=== PATIENT | male | born 1945 | race Caucasian/White ===

== ENCOUNTER 2016-07-12 10:30 | Outpatient (CLI) | payer MEDICARE, OTHER | END 2016-07-12 10:31 | disposition home or self-care (01) | DX: Z85.46 Personal history of malignant neoplasm of prostate (principal) ==

== ENCOUNTER 2016-10-31 08:09 | Outpatient (CLI) | payer MEDICARE, OTHER ==
[2016-10-31 14:18] LABS: ALBUMIN/GLOBULIN RATIO 1.2 (1.0-2.2); BILIRUBIN,TOTAL 0.6 mg/dL (0.2-1.0); BUN - BLOOD UREA NITROGEN 29 mg/dL (6-20); CALCIUM 9.4 mg/dL (8.5-10.3); CARBON DIOXIDE - CO2 25 mmol/L (21-32); CHLORIDE 105 mmol/L (101-111); CHOL/HDL RATIO 3.4 (<5.0); CHOLESTEROL 167 mg/dL; GFR - MDRD 74 (>89); GLUCOSE 108 mg/dL (70-100); HDL CHOLESTEROL 49 mg/dL; POTASSIUM 4.1 mmol/L (3.5-5.0); SODIUM 138 mmol/L (135-145); TOTAL PROTEIN 7.1 g/dL (6.7-8.2); TRIGLYCERIDES 104 mg/dL; VLDL CHOLESTEROL 21 mg/dL
[2016-10-31 14:21] LABS: BASOPHILS % (AUTO) 0.2 %; EOSINOPHILS # (AUTO) 0.1 10^3/uL (0.0-0.7); EOSINOPHILS % (AUTO) 1.4 %; HCT - HEMATOCRIT 39.8 % (42.0-52.0); HGB - HEMOGLOBIN 13.4 g/dL (14.0-18.0); LYMPHOCYTES % (AUTO) 22.1 %; MEAN CORPUSCULAR HEMOGLOBIN 30.6 pg (27.0-31.0); MEAN CORPUSCULAR HGB CONC 33.6 g/dL (32.0-36.0); MEAN CORPUSCULAR VOLUME 91.1 fL (80.0-94.0); MONOCYTES # (AUTO) 0.5 10^3/uL (0.0-1.0); MONOCYTES % (AUTO) 11.2 %; NEUTROPHILS % (AUTO) 65.1 %; RED BLOOD COUNT 4.37 10^6/uL (4.70-6.10); RED CELL DISTRIBUTION WIDTH 13.4 % (12.0-15.0); UNCORRECTED WHITE BLOOD COUNT 4.6 x10^3/uL; WHITE BLOOD COUNT 4.6 x10^3/uL (4.8-10.8)
[2016-10-31 14:43] LABS: HEMOGLOBIN A1C 0.57 g/dL
== END 2016-10-31 08:10 | disposition home or self-care (01) ==
LOC: LAB.WCP 08:09
PROVIDERS: ATTEND Family Medicine
DX: I10 Essential (primary) hypertension (principal); R73.01 Impaired fasting glucose; E78.5 Hyperlipidemia, unspecified; R53.83 Other fatigue; R61 Generalized hyperhidrosis
CPT/HCPCS: 36415; 80053; 80061; 83036; 84403; 84443; 85025

== ENCOUNTER 2016-11-17 08:11 | Outpatient (CLI) | payer MEDICARE, OTHER ==
--- NOTE | 2016-11-17 13:02 | XRAY Report ---
TWO-VIEW BILATERAL KNEES: 11/17/2016 CLINICAL INDICATION: Pain. FINDINGS: Frontal and lateral views of the bilateral knees demonstrate moderate right and mild left knee osteoarthritis. There is no evidence of fracture or dislocation. No effusion is present on eit her side. IMPRESSION: MODERATE RIGHT AND MILD LEFT KNEE OSTEOARTHRITIS. JOB #: [id number] EXT JOB #:[id number]
--- NOTE | 2016-11-17 13:04 | XRAY Report ---
TWO-VIEW RIGHT LOWER LE11/17/2016 CLINICAL INDICATION: Leg pain. FINDINGS: Frontal and lateral views of the right lower leg demonstrate old, healed distal tibia and proximal fibula fractures. There is no evidence of acute fracture or dislocation. No radiopaque for eign body is seen in the soft tissues. IMPRESSION: OLD, HEALED FRACTURES. NO EVIDENCE OF ACUTE FRACTURE. JOB #: [id number] EXT JOB #:[id number]
== END 2016-11-17 08:12 | disposition home or self-care (01) ==
LOC: DI 08:11
PROVIDERS: ATTEND Family Medicine
DX: M25.561 Pain in right knee (principal); M25.562 Pain in left knee; M79.604 Pain in right leg; C61 Malignant neoplasm of prostate; M17.0 Bilateral primary osteoarthritis of knee

== ENCOUNTER 2017-08-10 08:18 | Outpatient (CLI) | payer MEDICARE, OTHER ==
[2017-08-10 12:49] LABS: BASOPHILS % (AUTO) 0.2 %; EOSINOPHILS # (AUTO) 0.1 10^3/uL (0.0-0.7); EOSINOPHILS % (AUTO) 1.2 %; HGB - HEMOGLOBIN 14.1 g/dL (14.0-18.0); LYMPHOCYTES # (AUTO) 1.1 10^3/uL (1.5-3.5); LYMPHOCYTES % (AUTO) 17.9 %; MEAN CORPUSCULAR HEMOGLOBIN 30.5 pg (27.0-31.0); MEAN CORPUSCULAR HGB CONC 32.9 g/dL (32.0-36.0); MEAN CORPUSCULAR VOLUME 92.7 fL (80.0-94.0); MEAN PLATELET VOLUME 9.7 fL (7.4-11.4); MONOCYTES # (AUTO) 0.7 10^3/uL (0.0-1.0); MONOCYTES % (AUTO) 11.3 %; NEUTROPHILS # (AUTO) 4.1 10^3/uL (1.5-6.6); NEUTROPHILS % (AUTO) 69.4 %; PLT - PLATELET COUNT 156 10^3/uL (130-450); RED BLOOD COUNT 4.64 10^6/uL (4.70-6.10); RED CELL DISTRIBUTION WIDTH 13.4 % (12.0-15.0)
[2017-08-10 13:17] LABS: ALBUMIN 3.9 g/dL (3.2-5.5); ALBUMIN/GLOBULIN RATIO 1.2 (1.0-2.2); ALKALINE PHOSPHATASE 69 IU/L (42-121); ALT ALANINE AMINOTRANSFERASE 26 IU/L (10-60); AST ASPARTATE AMINOTRANSFERASE 21 IU/L (10-42); BILIRUBIN,TOTAL 0.4 mg/dL (0.2-1.0); BUN - BLOOD UREA NITROGEN 28 mg/dL (6-20); CALCIUM 9.3 mg/dL (8.5-10.3); CARBON DIOXIDE - CO2 29 mmol/L (21-32); CHLORIDE 103 mmol/L (101-111); CHOL/HDL RATIO 3.4 (<5.0); CHOLESTEROL 182 mg/dL; GFR - MDRD 74 (>89); GLUCOSE 107 mg/dL (70-100); HDL CHOLESTEROL 53 mg/dL; LDL CHOLESTEROL,CALCULATED 111 mg/dL; LDL/HDL RATIO 2.1 (<3.6); SODIUM 137 mmol/L (135-145); TOTAL PROTEIN 7.1 g/dL (6.7-8.2); VLDL CHOLESTEROL 18 mg/dL
[2017-08-10 13:45] LABS: HB2 TOTAL 16.1 g/dL; HEMOGLOBIN A1C 0.66 g/dL; HEMOGLOBIN A1C % 5.9 % (4.6-6.2)
== END 2017-08-10 08:19 ==
LOC: LAB.WCP 08:18
PROVIDERS: ATTEND Family Medicine
DX: R73.01 Impaired fasting glucose (principal); E78.5 Hyperlipidemia, unspecified; C61 Malignant neoplasm of prostate; I10 Essential (primary) hypertension; D64.9 Anemia, unspecified
CPT/HCPCS: 36415; 80053; 80061; 83036; 83721; 84153; 84443; 85025

== ENCOUNTER 2018-08-09 08:30 | Outpatient (CLI) | payer MEDICARE, OTHER ==
[2018-08-09 13:18] LABS: BASOPHILS % (AUTO) 0.5 %; EOSINOPHILS # (AUTO) 0.1 10^3/uL (0.0-0.7); EOSINOPHILS % (AUTO) 1.8 %; HGB - HEMOGLOBIN 14.8 g/dL (14.0-18.0); LYMPHOCYTES # (AUTO) 1.4 10^3/uL (1.5-3.5); LYMPHOCYTES % (AUTO) 30.6 %; MEAN CORPUSCULAR HEMOGLOBIN 31.1 pg (27.0-31.0); MEAN CORPUSCULAR HGB CONC 33.5 g/dL (32.0-36.0); MEAN CORPUSCULAR VOLUME 92.8 fL (80.0-94.0); MONOCYTES # (AUTO) 0.5 10^3/uL (0.0-1.0); MONOCYTES % (AUTO) 11.4 %; NEUTROPHILS # (AUTO) 2.6 10^3/uL (1.5-6.6); NEUTROPHILS % (AUTO) 55.7 %; PLT - PLATELET COUNT 160 10^3/uL (130-450); RED BLOOD COUNT 4.77 10^6/uL (4.70-6.10); RED CELL DISTRIBUTION WIDTH 13.4 % (12.0-15.0); WHITE BLOOD COUNT 4.7 x10^3/uL (4.8-10.8)
[2018-08-09 13:20] LABS: ALBUMIN/GLOBULIN RATIO 1.3 (1.0-2.2); ALKALINE PHOSPHATASE 67 IU/L (42-121); ALT ALANINE AMINOTRANSFERASE 28 IU/L (10-60); AST ASPARTATE AMINOTRANSFERASE 25 IU/L (10-42); BILIRUBIN,TOTAL 0.6 mg/dL (0.2-1.0); BUN - BLOOD UREA NITROGEN 28 mg/dL (6-20); CALCIUM 9.3 mg/dL (8.5-10.3); CARBON DIOXIDE - CO2 29 mmol/L (21-32); CHLORIDE 100 mmol/L (101-111); CHOL/HDL RATIO 2.7 (<5.0); CHOLESTEROL 149 mg/dL; CREATININE 1.1 mg/dL (0.6-1.2); GFR - MDRD 66 (>89); GLUCOSE 108 mg/dL (70-100); HB2 TOTAL 16.2 g/dL; HDL CHOLESTEROL 56 mg/dL; HEMOGLOBIN A1C 0.64 g/dL; HEMOGLOBIN A1C % 5.8 % (4.6-6.2); LDL CHOLESTEROL,CALCULATED 72 mg/dL; LDL/HDL RATIO 1.3 (<3.6); SODIUM 136 mmol/L (135-145); VLDL CHOLESTEROL 21 mg/dL
[2018-08-10 12:46] LABS: HEPATITIS C ANTIBODY NON-REACTIVE (NON-REACTIVE)
== END 2018-08-09 08:31 | disposition home or self-care (01) ==
LOC: LAB.WCP 08:30
PROVIDERS: ATTEND Family Medicine
DX: I10 Essential (primary) hypertension (principal); E78.5 Hyperlipidemia, unspecified; R73.01 Impaired fasting glucose; C61 Malignant neoplasm of prostate; Z11.59 Encounter for screening for other viral diseases
CPT/HCPCS: 36415; 80053; 80061; 83036; 83721; 84153; 84443; 85025; 86803

== ENCOUNTER 2019-09-24 08:00 | Outpatient (CLI) | payer MEDICARE, OTHER ==
[2019-09-24 15:37] LABS: BASOPHILS % (AUTO) 0.2 %; EOSINOPHILS # (AUTO) 0.1 10^3/uL (0.0-0.7); EOSINOPHILS % (AUTO) 2.8 %; HGB - HEMOGLOBIN 15.6 g/dL (14.0-18.0); LYMPHOCYTES # (AUTO) 1.5 10^3/uL (1.5-3.5); LYMPHOCYTES % (AUTO) 32.4 %; MEAN CORPUSCULAR HEMOGLOBIN 31.4 pg (27.0-31.0); MEAN CORPUSCULAR HGB CONC 32.8 g/dL (32.0-36.0); MEAN CORPUSCULAR VOLUME 95.8 fL (80.0-94.0); MEAN PLATELET VOLUME 12.4 fL (7.4-11.4); MONOCYTES # (AUTO) 0.6 10^3/uL (0.0-1.0); MONOCYTES % (AUTO) 12.7 %; NEUTROPHILS # (AUTO) 2.4 10^3/uL (1.5-6.6); NEUTROPHILS % (AUTO) 51.5 %; PLT - PLATELET COUNT 153 10^3/uL (130-450); RED BLOOD COUNT 4.97 10^6/uL (4.70-6.10); RED CELL DISTRIBUTION WIDTH 12.7 % (12.0-15.0); WHITE BLOOD COUNT 4.7 x10^3/uL (4.8-10.8)
[2019-09-24 15:54] LABS: ALBUMIN 3.8 g/dL (3.2-5.5); ALBUMIN/GLOBULIN RATIO 1.4 (1.0-2.2); ALKALINE PHOSPHATASE 61 IU/L (42-121); ALT ALANINE AMINOTRANSFERASE 23 IU/L (10-60); AST ASPARTATE AMINOTRANSFERASE 21 IU/L (10-42); BILIRUBIN,TOTAL 0.3 mg/dL (0.2-1.0); BUN - BLOOD UREA NITROGEN 27 mg/dL (6-20); CALCIUM 9.4 mg/dL (8.5-10.3); CARBON DIOXIDE - CO2 27 mmol/L (21-32); CHLORIDE 100 mmol/L (101-111); CHOL/HDL RATIO 3.4 (<5.0); CHOLESTEROL 188 mg/dL; GLUCOSE 101 mg/dL (70-100); HDL CHOLESTEROL 55 mg/dL; LDL CHOLESTEROL,CALCULATED 115 mg/dL; LDL/HDL RATIO 2.1 (<3.6); SODIUM 137 mmol/L (135-145); TOTAL PROTEIN 6.5 g/dL (6.7-8.2); VLDL CHOLESTEROL 18 mg/dL
[2019-09-24 16:00] LABS: HB2 TOTAL 16.1 g/dL; HEMOGLOBIN A1C 0.63 g/dL; HEMOGLOBIN A1C % 5.7 % (4.6-6.2)
== END 2019-09-24 23:59 | disposition home or self-care (01) ==
LOC: LAB.WCP 08:00
PROVIDERS: ATTEND Family Medicine
DX: C61 Malignant neoplasm of prostate (principal); I10 Essential (primary) hypertension; E78.5 Hyperlipidemia, unspecified; R73.01 Impaired fasting glucose
CPT/HCPCS: 36415; 80053; 80061; 83036; 83721; 84153; 84443; 85025

== ENCOUNTER 2020-07-08 07:00 | Outpatient (CLI) | payer MEDICARE, OTHER ==
[2020-07-08 12:03] LABS: BASOPHILS % (AUTO) 0.2 %; EOSINOPHILS # (AUTO) 0.1 10^3/uL (0.0-0.7); EOSINOPHILS % (AUTO) 2.2 %; HCT - HEMATOCRIT 46.8 % (42.0-52.0); HGB - HEMOGLOBIN 15.1 g/dL (14.0-18.0); LYMPHOCYTES # (AUTO) 1.5 10^3/uL (1.5-3.5); LYMPHOCYTES % (AUTO) 27.3 %; MEAN CORPUSCULAR HEMOGLOBIN 30.4 pg (27.0-31.0); MEAN CORPUSCULAR HGB CONC 32.3 g/dL (32.0-36.0); MEAN CORPUSCULAR VOLUME 94.4 fL (80.0-94.0); MEAN PLATELET VOLUME 11.5 fL (7.4-11.4); MONOCYTES # (AUTO) 0.7 10^3/uL (0.0-1.0); MONOCYTES % (AUTO) 12.1 %; NEUTROPHILS # (AUTO) 3.2 10^3/uL (1.5-6.6); PLT - PLATELET COUNT 161 10^3/uL (130-450); RED BLOOD COUNT 4.96 10^6/uL (4.70-6.10); RED CELL DISTRIBUTION WIDTH 12.2 % (12.0-15.0); WHITE BLOOD COUNT 5.5 x10^3/uL (4.8-10.8)
[2020-07-08 12:29] LABS: ALBUMIN/GLOBULIN RATIO 1.4 (1.0-2.2); ALKALINE PHOSPHATASE 60 IU/L (42-121); ALT ALANINE AMINOTRANSFERASE 24 IU/L (10-60); AST ASPARTATE AMINOTRANSFERASE 19 IU/L (10-42); BILIRUBIN,TOTAL 0.7 mg/dL (0.2-1.0); BUN - BLOOD UREA NITROGEN 27 mg/dL (6-20); CALCIUM 9.4 mg/dL (8.5-10.3); CARBON DIOXIDE - CO2 30 mmol/L (21-32); CHLORIDE 101 mmol/L (101-111); CHOL/HDL RATIO 3.7 (<5.0); CHOLESTEROL 183 mg/dL; CREATININE 1.1 mg/dL (0.6-1.2); GFR - MDRD 66 (>89); GLUCOSE 113 mg/dL (70-100); HDL CHOLESTEROL 50 mg/dL; LDL CHOLESTEROL,CALCULATED 109 mg/dL; LDL/HDL RATIO 2.2 (<3.6); SODIUM 137 mmol/L (135-145); TOTAL PROTEIN 6.9 g/dL (6.7-8.2); TRIGLYCERIDES 118 mg/dL; VLDL CHOLESTEROL 24 mg/dL
[2020-07-08 12:58] LABS: THYROID STIMULATING HORMONE 2.34 uIU/mL (0.34-5.60)
[2020-07-08 13:20] LABS: ESTIMATED AVERAGE GLUCOSE 123 mg/dL (70-100); HEMOGLOBIN A1c% 5.9 % (4.27-6.07)
== END 2020-07-08 23:59 | disposition home or self-care (01) ==
LOC: LAB.WCP 07:00
PROVIDERS: ATTEND Family Medicine
DX: I10 Essential (primary) hypertension (principal); E78.5 Hyperlipidemia, unspecified; R73.01 Impaired fasting glucose; C61 Malignant neoplasm of prostate
CPT/HCPCS: 36415; 80053; 80061; 83036; 83721; 84153; 84443; 85025

== ENCOUNTER 2020-08-12 13:47 | Outpatient (CLI) | payer MEDICARE, OTHER | END 2020-08-12 13:48 | disposition home or self-care (01) | LOC: NS 13:47 | PROVIDERS: ATTEND Family Medicine | DX: Z71.3 Dietary counseling and surveillance (principal); E66.9 Obesity, unspecified; Z68.35 Body mass index [BMI] 35.0-35.9, adult | CPT/HCPCS: 97802 ==

== ENCOUNTER 2020-09-26 12:38 | Emergency (ER) | payer MEDICARE, OTHER ==
--- OUTSIDE RECORDS SUMMARY | 2020-09-26 13:15 | EXTERNAL MEDICAL SUMMARY RPT | Continuity of Care Document ---
:1945 Demographics Phone Unavailable Preferred Language Unknown Marital Status Unknown Mu-Ism Affiliation Unknown Race Unknown Ethnic Group Unknown Author Organization [facility] Address [address] [place] [address] Phone Allergies Encounters Medications Problems Results
[2020-09-26] MEDS ORDERED: BUFFERED LIDOCAINE 10 ML SYRINGE SUBQ STA (13:25)
[2020-09-26] MEDS ORDERED: TETANUS/DIPHTHERIA/PERTUSSIS 0.5 ML SYRINGE IM ONE (13:25)
--- NOTE | 2020-09-26 13:27 | ED Physician Documentation ---
History of Present Illness - Stated complaint Stated Complaint: L HAND INJURY - Chief complaint Chief Complaint: Ext Problem - Additonal information Additional information: 75-year-old male presents the emergency department for evaluation of a left index splinter sustained about 2 hours prior to arrival. He was placing new hardwood floors in his kitchen and was sanding some baseboard when the splinter occurred. Unknown last tetanus. Review of Systems Constitutional: reports: Reviewed and negative Ears: reports: Reviewed and negative Nose: reports: Reviewed and negative Throat: reports: Reviewed and negative Cardiac: reports: Reviewed and negative Respiratory: reports: Reviewed and negative GI: reports: Reviewed and negative : reports: Reviewed and negative Skin: reports: Lesions (Splinter left index finger) PD PAST MEDICAL HISTORY - Past Medical History Past Medical History: Yes Cardiovascular: Hypertension, High cholesterol Respiratory: Sleep apnea, Other Psych: Depression Musculoskeletal: Chronic back pain - Past Surgical History Past Surgical History: Yes - Present Medications Home Medications: Ambulatory Orders Medication Instructions Recorded Confirmed Ascorbic Acid [Vitamin C] 1 tab PO DAILY 02/10/14 09/26/20 Aspirin [Aspir 81] 81 mg PO DAILY 02/10/14 09/26/20 Cholecalciferol (Vitamin D3) 1 tab PO DAILY 02/10/14 09/26/20 [Vitamin D-3] Lisinopril 20 mg PO BID 02/10/14 09/26/20 Melatonin 1 tab PO DAILY 02/10/14 09/26/20 Salem-3 Fatty Acids [Fish Oil] 1 tab PO DAILY 02/10/14 09/26/20 Potassium Chloride [K-Dur] 20 meq PO DAILY 02/10/14 09/26/20 Sertraline HCl [Zoloft] 50 mg PO DAILY 02/10/14 09/26/20 Simvastatin 10 mg PO DAILY 02/10/14 09/26/20 Verapamil [Calan] 240 mg PO DAILY 02/10/14 09/26/20 hydrALAZINE [Apresoline] 25 mg PO BID 02/10/14 09/26/20 hydroCHLOROthiazide 75 mg PO DAILY 02/10/14 09/26/20 [Hydrochlorothiazide] cephALEXin [Keflex] 500 mg PO Q6H #28 09/26/20 - Allergies Allergies/Adverse Reactions: Allergies Allergy/AdvReac Type Severity Reaction Status Date / Time atenolol Allergy Unknown Verified 02/10/14 15:11 - Social History Does the pt smoke?: No Smoking Status: Never smoker Does the pt drink ETOH?: Yes Does the pt have substance abuse?: No PD ED PE EXPANDED - General General: Alert, No acute distress - Extremities Extremities: Left finger(s) (Palpable through and through splinter left index finger palm side between PIP and DIP joint. No surrounding erythema or redness.) Results - Vitals Vitals: Vital Signs - 24 hr 09/26/20 12:43 Temperature 36.6 C Heart Rate 64 Respiratory 15 Rate Blood Pressure 128/78 O2 Saturation 98 Oxygen O2 Source Room air Procedures - FB removal FB location: Subcutaneous FB removal preparation: Regional block-specify (left index finger digital block) Removal method: Foreceps FB removal aftercare: Patient tolerated well, Unable to remove PD MEDICAL DECISION MAKING - ED course Complexity details: reviewed results, re-evaluated patient, d/w patient ED course: 75-year-old male presents to the emergency department for evaluation of a splinter in his left index finger palmar side between the PIP and DIP joint. Though initially the splinter was palpable after about 45 minutes in the emergency department it was no longer able to be palpated. We did attempt foreign body removal at the bedside and we were unsuccessful. This gentleman will be placed on a 5-day course of Cephalexin. Will be advised warm salt water soaks. Bacitracin to be applied to the wound. Return precautions were discussed for concerns of infection or felon development. Tetanus was updated today. Departure - Departure Disposition: 01 Home, Self Care Clinical Impression: Splinter of finger Condition: Stable Record reviewed to determine appropriate education?: Yes Follow-Up: Ramiro Rosen DO [Primary Care Provider] - Prescriptions: cephALEXin [Keflex] 500 mg PO Q6H #28 Comments: Anthony unfortunately We were unable to remove the splinter from your finger today. It is likely That the splinter will simply dissolve or absorb. However you are at risk of developing cellulitis or a felon infection in this finger. Please fill the prescription for the cephalexin and begin taking as directed. Soak the finger in Betadine solution or warm salt water for 10 minutes twice a day. If at any point you have concerns of infection that is worsening please return to the ER for a second look. Your tetanus was updated today and is good for the next 7 to 10 years.
[2020-09-26] MEDS ORDERED: cephALEXin 250 MG CAPSULE PO STA (14:11)
[2020-09-26] MEDS ORDERED: BACITRACIN ZINC OINT 1 PACKET TOP STA (14:11)
[2020-09-26 14:39] VITALS: BP 130/62
== END 2020-09-26 14:39 | disposition home or self-care (01) ==
LOC: ED 12:38
DX: S60.451A Superficial foreign body of left index finger, initial encounter (principal); W45.8XXA Other foreign body or object entering through skin, initial encounter; Y93.H3 Activity, building and construction; Y92.000 Kitchen of unspecified non-institutional (private) residence as the place of occurrence of the external cause; Z23 Encounter for immunization; I10 Essential (primary) hypertension; Z79.82 Long term (current) use of aspirin
CPT/HCPCS: 90471; 90715; 99283; A9270

== ENCOUNTER 2020-09-29 11:18 | Day surgery (SDC) | payer MEDICARE, OTHER ==
[2020-09-29] MEDS ORDERED: LACTATED RINGERS 1,000 ML IV ONE (11:24)
[2020-09-29] MEDS ORDERED: MIDAZOLAM 2 MG/2 ML VIAL ONE ×2 (12:50→12:51)
[2020-09-29] MEDS ORDERED: fentaNYL 250 MCG/5 ML VIAL ONE (12:50)
[2020-09-29] MEDS ORDERED: LACTATED RINGERS 400 ML IV ONE (13:39)
[2020-09-29 13:55] VITALS: BP 116/63
== END 2020-09-29 11:19 | disposition home or self-care (01) ==
LOC: SDS 11:18
PROVIDERS: ATTEND Surgery
PROC: 0DBP8ZZ Excision of Rectum, Via Natural or Artificial Opening Endoscopic (ICD-10-PCS; principal; 2020-09-29 12:30)
DX: Z12.11 Encounter for screening for malignant neoplasm of colon (principal); K62.1 Rectal polyp; K57.30 Diverticulosis of large intestine without perforation or abscess without bleeding; K64.8 Other hemorrhoids; K64.4 Residual hemorrhoidal skin tags; Z85.46 Personal history of malignant neoplasm of prostate; I10 Essential (primary) hypertension
CPT/HCPCS: 45385; J3010; J7120

== ENCOUNTER 2020-11-20 08:00 | Outpatient (CLI) | payer MEDICARE, OTHER ==
[2020-11-20] MEDS ORDERED: IOVERSOL 320 50 ML VIAL ONE (08:07)
[2020-11-20] MEDS ORDERED: IOPAMIDOL-300 100 ML VIAL ONE (08:07)
[2020-11-20 08:46] LABS: CREATININE 0.9 mg/dL (0.6-1.2)
[2020-11-20] MEDS ORDERED: IOVERSOL 320 50 ML VIAL PO ONE (09:35)
[2020-11-20] MEDS ORDERED: IOPAMIDOL-300 100 ML VIAL IVP ONE (09:35)
--- NOTE | 2020-11-20 10:04 | CT Report ---
PROCEDURE: Abdomen/Pelvis W INDICATIONS: TUBULAR ADENOMA OF COLON CONTRAST: IV CONTRAST: Isovue 300 ml: 100 PO CONTRAST: Optiray 320 ml50 TECHNIQUE: After the administration of oral and IV contrast, 5 mm thick sections acquired from the diaphragms to the symphysis. 5 mm thick coronal and sagittal reformats were acquired. For radiation dose reducti on, the following was used: automated exposure control, adjustment of mA and/or kV according to pippa ent size. COMPARISON: None. FINDINGS: Image quality: Excellent. ABDOMEN: Lung bases: Lung bases are clear. Heart size is normal. Moderate-sized hiatal hernia. Solid organs: There are several scattered hypodensities seen throughout the liver of varying sizes r anging from a few millimeters to the largest measuring 4.2 cm in the gallbladder fossa. The larger le sions demonstrate attenuation compatible with cysts. In the medial uncinate process of the pancreas t here is a 3.1 x 2.2 cm cystic mass. The remainder the pancreas is normal without ductal dilatation or calcifications. A 1.0 cm nonobstructing calcification is present in the right lower pole intrarenal collecting system. A few tiny cortical cysts are present in each kidney. No hydronephrosis. The splee n, gallbladder and adrenal glands are normal. Peritoneum and bowel: Bowel loops demonstrate normal wall thickness and caliber. Occasional divertic ulosis throughout the colon. A normal appendix is seen. Small bowel and stomach are fairly decompress ed. No suspicious mesenteric mass or adenopathy. No free fluid or air. Nodes and vessels: No retroperitoneal or mesenteric adenopathy by size criteria. Aorta and inferior vena cava are normal in size. Miscellaneous: No ventral hernias. Slight diastases of the rectus abdominis. PELVIS: Genitourinary: Bladder wall thickness is normal. The prostate gland is absent Miscellaneous: No inguinal hernias or adenopathy. Bones: No suspicious bony lesions. Multilevel degenerative disc and endplate change in the lower th oracic and lumbar spine No vertebral body compression fractures. IMPRESSION: 1. Several hepatic hypodensities, some too small to characterize, but the largest are compatible with cysts. 2. 3.1 cm cystic mass in the uncinate process of the pancreas. Further evaluation with pancreatic pro tocol MRI is recommended. 3. Occasional colonic diverticulosis. 4. Moderate-sized hiatal hernia. Reviewed by: Billie Jha MD on 11/20/2020 10:02 AM PDT Approved by: Billie Jha MD on 11/20/2020 10:02 AM PDT Station ID: [id number]
== END 2020-11-20 08:01 | disposition home or self-care (01) ==
LOC: DI 08:00
PROVIDERS: ATTEND Surgery
DX: K86.2 Cyst of pancreas (principal); K57.30 Diverticulosis of large intestine without perforation or abscess without bleeding; K44.9 Diaphragmatic hernia without obstruction or gangrene
CPT/HCPCS: 36415; 74177; 82565; Q9967

== ENCOUNTER 2020-12-22 07:11 | Outpatient (CLI) | payer MEDICARE, OTHER ==
[2020-12-22 07:56] LABS: CREATININE 0.9 mg/dL (0.6-1.2)
[2020-12-22] MEDS ORDERED: GADOBUTROL 15 MMOL/15 ML VIAL ONE (08:38)
--- NOTE | 2020-12-22 16:35 | MRI Report ---
PROCEDURE: Abdomen W/WO INDICATIONS: PANCREATIC CYST CONTRAST: IV CONTRAST: Gadavist ml: 13.2 TECHNIQUE: Coronal ultra fast SE, axial 2D spoiled GE in- and [id number]; axial breath-hold T2 fast SE. Dynam ic axial ultra fast GE during the administration of contrast; post-contrast coronal ultra fast GE or 2D spoiled GE with fat saturation from the hepatic dome to the iliac crests. Optional diffusion weig hted imaging and ADC may be performed. COMPARISON: CT abdomen pelvis 11/20/2020. FINDINGS: Image quality: Evaluation markedly limited by body habitus and motion artifact. Lung bases: No basal pleural effusions. Heart size is enlarged. A moderate-sized hiatal hernia is r edemonstrated. Solid organs: Numerous cysts are demonstrated throughout the liver. Gallbladder appears within radha l limits without gallstones. Biliary system is non dilated. No adrenal nodules. Kidneys demonstrate no hydronephrosis. Medially within the uncinate process, there is a lobulated thin-walled cystic lesion measuring up to 3.2 x 2.4 x 3.3 cm redemonstrated. This demonstrates suspected communication with the main pancreatic duct which is nondistended. Following contrast administration, there is no definite internal enhance ment. Nodes and vessels: No retroperitoneal or mesenteric adenopathy by size criteria. Aorta and inferior vena cava are normal in size. Bowel and peritoneum: Visualized bowel loops are normal in caliber. No free fluid. Bones and soft tissues: No ventral hernias. Bone marrow is normal in overall signal. IMPRESSION: 1. Lobulated thin-walled cystic lesion within the uncinate process of the pancreas redemonstrated wit h suspected communication with the main pancreatic duct. 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 Recommend a follow-up study in 12 months to demonstra te stability. 2. Multiple hepatic cysts redemonstrated. Reviewed by: Marc Trevino MD on 12/22/2020 4:34 PM PDT Approved by: Marc Trevino MD on 12/22/2020 4:34 PM PDT Station ID: [id number]
[2020-12-22] MEDS ORDERED: GADOBUTROL 15 MMOL/15 ML VIAL IVP ONE (16:56)
== END 2020-12-22 07:12 | disposition home or self-care (01) ==
LOC: LAB 07:11
PROVIDERS: ATTEND Surgery
DX: D12.6 Benign neoplasm of colon, unspecified (principal); K86.2 Cyst of pancreas; K76.89 Other specified diseases of liver
CPT/HCPCS: 36415; 74183; 82565; A9585

== ENCOUNTER 2021-01-26 07:36 | Outpatient (CLI) | payer MEDICARE, OTHER ==
[2021-01-26 12:12] LABS: BASOPHILS % (AUTO) 0.2 %; EOSINOPHILS # (AUTO) 0.1 10^3/uL (0.0-0.7); EOSINOPHILS % (AUTO) 1.7 %; HGB - HEMOGLOBIN 15.5 g/dL (14.0-18.0); LYMPHOCYTES # (AUTO) 1.5 10^3/uL (1.5-3.5); MEAN CORPUSCULAR HEMOGLOBIN 30.6 pg (27.0-31.0); MEAN CORPUSCULAR HGB CONC 32.3 g/dL (32.0-36.0); MEAN CORPUSCULAR VOLUME 94.7 fL (80.0-94.0); MEAN PLATELET VOLUME 11.7 fL (7.4-11.4); MONOCYTES # (AUTO) 0.5 10^3/uL (0.0-1.0); MONOCYTES % (AUTO) 11.5 %; NEUTROPHILS # (AUTO) 2.6 10^3/uL (1.5-6.6); NEUTROPHILS % (AUTO) 55.4 %; PLT - PLATELET COUNT 154 10^3/uL (130-450); RED BLOOD COUNT 5.07 10^6/uL (4.70-6.10); RED CELL DISTRIBUTION WIDTH 12.6 % (12.0-15.0); WHITE BLOOD COUNT 4.7 x10^3/uL (4.8-10.8)
[2021-01-26 12:39] LABS: ESTIMATED AVERAGE GLUCOSE 123 mg/dL (70-100); HEMOGLOBIN A1c% 5.9 % (4.27-6.07); THYROID STIMULATING HORMONE 2.88 uIU/mL (0.34-5.60)
[2021-01-26 13:04] LABS: ALBUMIN/GLOBULIN RATIO 1.3 (1.0-2.2); BILIRUBIN,TOTAL 0.6 mg/dL (0.2-1.0); TOTAL PROTEIN 7.1 g/dL (6.7-8.2)
[2021-01-26 13:05] LABS: CALCIUM 9.7 mg/dL (8.5-10.3); POTASSIUM 4.1 mmol/L (3.5-5.0)
== END 2021-01-26 23:59 | disposition home or self-care (01) ==
LOC: LAB.WCP 07:36
PROVIDERS: ATTEND Family Medicine
DX: R73.01 Impaired fasting glucose (principal); I10 Essential (primary) hypertension
CPT/HCPCS: 36415; 80053; 83036; 84443; 85025

== ENCOUNTER 2021-02-23 10:47 | Outpatient (CLI) | payer MEDICARE, OTHER ==
[2021-02-23 11:41] VITALS: BP 120/69
--- NOTE | 2021-02-23 11:41 | SLEEP CARE CONSULTATION ---
Information from patient questionnaire entered by Estela Bey MA. I have reviewed and concur with the information entered by Estela Bey MA. This document represents the service I personally performed and the decisions made by me, Deneen Butcher ARNP. History of Present Illness Service Date and Time: 02/23/2021 1047 Reason for Visit: New patient Chief Complaint: reports: Unrefreshed sleep, Snoring, Observed pauses in breathing (15 years ago, nothing recent), Frequent awakenings at night Date of Onset: years Usual bedtime: 10-11 pm Time it takes to fall asleep: 10 minutes with melatonin Snores at night: Yes (occasionally) Observed to quit breathing while asleep: No Sleeps alone due to snoring: No Number of times waking at night: 6-7 Reasons for waking at night: reports: Choking (from acid reflux), Bathroom Toss, Turn, or Twitch while sleeping: Yes Recalls having dreams: Yes Usually gets out of bed at: 0600 - 0700 Feels refreshed in the morning: No (only if don't get caffiene in morning) Morning headache: No Sleepy or fatigued during the day: Yes (sometimes when sitting and reading; if active, no) Ever fallen asleep while driving: No Takes day naps: Yes (90% of time gets nap; 45 minutes to hours) Dreams during day naps: Yes Prior sleep studies: Yes (x2 ) Year and Where: [facility] Additional HPI information: I had the pleasure of seeing GONZALO LOVE today regarding the possibility of him having a sleep disorder. His current complaints are snoring occasionally, reflux when laying flat, unrefreshed sleep sometimes and some tiredness during the day. 23 years ago went into a sleep study and started CPAP. He got a facial spasm that started after starting CPAP. He was woken up when turning on sides. He did another study that showed good apnea control with head elevated. He has been using positional therapy with a wedge pillows. He uses a Fit bit that is showing awakening areas during the night. He takes 10 mg Melatonin at night and he will fall asleep in 5-10 minutes and sleep well for 4 hours. He has difficulty getting back to sleep. His Fit bit says he is waking up many times a night and he does not remember them. - Parasomnia Symptoms Ever been unable to move upon waking from sleep: No Walks in sleep: No Talks in sleep: Yes Ever acted out dreams in sleep: Yes Ever felt weak in the knees when startled or emotional: No Bothered by creepy, crawly, restless sensations in legs: No Problems with memory or concentration: Yes Past Medical History Past Medical History: reports: Hypertension, GERD, Other (high cholesterol, Prostates 2011, Felix Facial spasm; macular degeneration bilateral) Social History The patient's occupation is a RE. Patient is and lives in [place]. Have you smoked in the past 12 months: No Alcohol use: Yes Alcohol amount and frequency: 3-4 times a week, 1-2 ounces Caffeine use: Yes Caffeine amount and frequency: 40 oz coffee, daily Family History Family history of sleep disordered breathing: No Allergies and Home Medications Drug allergies reviewed: Yes (Atenolol ) Home medication list reviewed: Yes Allergy and home medication list: Amlodipine HCTZ Spironolactone Hydralazine Losartan Simvastatin Omeprazole Fish oil Focus Select Melatonin Muriel Allergy tab Ibuprofen, as needed B-12 Vitamin C Glucosamine & Chondroitin D3 Zinc Neuriva Magnesium Review of Systems Cardiovascular: reports: high blood pressure Gastrointestinal: reports: heartburn Psychiatric: reports: depression (treated 10 years ago) Ear/Nose/Throat: reports: nasal congestion (Hay fever) Musculoskeletal: reports: joint pain (Knees) Immunologic: reports: sneezing Physical Exam Vital signs obtained and entered by: Maida Goodwin CMA AAMA Blood Pressure: 120/69 (left) Cuff size: wrist Heart Rate: 65 O2 Saturation: 96 (with mask) Height: 6 ft 4 in Weight: 298 lb (without boots) Body Mass Index: 36.2 BMI Classification: Obese Neck circumference: 18.75 (inches) Mouth and throat: narrow oropharynx Soft palate: long Hard palate: normal Uvula: normal Uvula visualization: 50% Mallampati Class II Tongue: enlarged in size with teeth renteria on lateral edges Tonsils: absent bilaterally Neck: normal w/o lymphadenopathy or thyromegaly Heart: regular rate and rhythm Lungs: clear bilaterally Impression and Plan 1. Suspected Obstructive Sleep Apnea-Hypopnea Syndrome, as previously diagnosed and as suggested by a history of irregular snoring, observed cessation of breath while asleep, choking in sleep, frequent awakening during the night, and unrefreshed sleep. Narrow oropharynx and obesity are common predisposing factors for obstructive sleep apnea-hypopnea syndrome. I recommend proceeding to polysomnography to confirm the diagnosis and to assess severity. If the patient has significant sleep disordered breathing, a manual CPAP titration study will also be performed to find the optimal treatment pressure. I informed the patient of what the sleep studies involve and after some discussion, obtained agreement to proceed. The pathophysiology of obstructive sleep apnea-hypopnea syndrome was discussed with the patient and health risks of cardiovascular and cerebrovascula r disease if not treated. Risks of drowsy driving discussed in detail and patient advised to avoid long distance driving and to meat puller at the first sign of drowsiness. Patient agreed to plan. * Schedule polysomnography +- manual CPAP titration study and return in 1-2 weeks after the study to discuss result and initiate therapy. * Avoid long distance driving or driving when feeling sleepy. * Avoid alcohol, sedative and muscle relaxant around bedtime. * Attempt to lose weight. * Review instructions provided by trained office staff on how to prepare for the sleep study. * Return for follow-up after sleep study completed. Counseling Topics: Weight loss health impact Visit Type: In Office Time Spent with Patient (minutes): 35 Provider Statement: I spent 100% of the Face to Face Visit with the patient with greater than 50% spent counseling the patient and coordination of care.
== END 2021-02-23 10:48 | disposition home or self-care (01) ==
LOC: SC 10:47
PROVIDERS: ATTEND Nurse Practitioner Family
DX: G47.33 Obstructive sleep apnea (adult) (pediatric) (principal); E66.9 Obesity, unspecified; Z68.36 Body mass index [BMI] 36.0-36.9, adult
CPT/HCPCS: 99203; G0463; 99212

== ENCOUNTER 2021-05-12 20:53 | Outpatient (CLI) | payer MEDICARE, OTHER | END 2021-05-12 20:54 | disposition home or self-care (01) | LOC: SC 20:53 | PROVIDERS: ATTEND Nurse Practitioner Family | DX: G47.33 Obstructive sleep apnea (adult) (pediatric) (principal); G47.61 Periodic limb movement disorder | CPT/HCPCS: 95810 ==

== ENCOUNTER 2021-06-08 08:50 | Outpatient (CLI) | payer MEDICARE, OTHER ==
--- NOTE | 2021-06-08 09:24 | SLEEP CARE CONSULTATION ---
Information from patient questionnaire entered by Estela Bey MA. I have reviewed and concur with the information entered by Estela Bey MA. This document represents the service I personally performed and the decisions made by , Deneen Butcher ARNP. History of Present Illness Service Date and Time: 06/08/2021 0893 Additional HPI information: GONZALO LOVE returns for follow up and results of the recently performed polysomnography. I explained the pathophysiology behind obstructive sleep apnea. We then spent quite a bit of time discussing different treatment options. For mild obstructive sleep apnea, surgery and oral appliance are alternatives to nasal CPAP therapy but in moderate or severe cases, nasal CPAP is the most effective and reliable treatment. Because apnea is primarily in supine position, then positional management therapy could be effective. Methods discussed such as positioning with pillows, using a T-shirt with tennis balls in the back, and shown commercial products that have a pillow format on back to prevent supine sleep. I reviewed the impact of weight changes on sleep apnea and strongly recommended losing weight. Patient counseled not drink alcohol less than 4 hours before bedtime as it can increase snoring and apnea. Patient was cautioned about risks of drowsy driving until sleepiness symptoms resolve. Sleep Study - Results Type of Sleep Study: Home sleep study (F/U POLY) Prior sleep studies: Yes (x2 ) Year and Where: [facility] Polysomnography/Home Sleep Study results: IMPRESSION: The quality of the study is good. The patient had normal sleep efficiency. The sleep architecture was abnormal for sleep fragmentation and reduced amount of time spent in slow wave sleep (N3). Respiratory monitoring showed mild obstructive sleep apnea-hypopnea (AHI = 12.8) associated with frequent arousals, oxyhemoglobin desaturation and moderate hypoxia (real oxygen saturation of 73%). The respiratory events occurred almost exclusively during supine sleep (supine AHI = 17.3; non-supine = 4.92). Snore was moderate in intensity. There was severe periodic leg movement of sleep not contributing to the sleep fragmentation. Cardiac rhythm was normal sinus rhythm without significant arrhythmia. No abnormal behavior (parasomnia) observed during the night. Allergies and Home Medications Home medication list reviewed: Yes (no changes) Allergy and home medication list: Allergies atenolol Allergy (Verified 02/10/14 15:11) Unknown Review of Systems Review of systems same as previous: Yes (no changes) Physical Exam Vital signs obtained and entered by: Ronald BEY CMA AAMA Blood Pressure: 128/73 (LEFT, PULSE 81, RESP 16,) Heart Rate: 82 O2 Saturation: 97 (N95 MASK) Height: 6 ft 4 in Weight: 300 lb (W/O CLOTHES) Weight change since last visit: TRYING TO LOSE WEIGHT. Body Mass Index: 36.5 BMI Classification: Obese Impression and Plan 1. Obstructive Sleep Apnea-Hypopnea Syndrome, mild, with lowest oxygen saturation of 74%. Obviously this is the cause of the patients symptoms of unrefreshed sleep, and excessive daytime sleepiness. Positive pressure therapy could benefit hypertension and gastric reflux. Since patients apnea is primarily in supine position, patient advised that he could try positional therapy and he agreed with plan. He is also advised to lose weight as this will reduce snoring and apnea. An oral appliance can also be used for snoring but often is not covered by insurance. Follow up is scheduled for three months to check effectiveness and if further evaluation indicated such a repeat study in supine position only to see if additional treatment indicated. Patient is obese and he was encouraged to try to lose weight by eating healthy and doing regular exercise. He voiced understanding. 2. Periodic limb movement, severe, that did not fragment patients sleep. Periodic limb movement of sleep (PLMS) is characterized by episodes of repetitive limb movements that occur during sleep and usually involve the lower limbs. The etiology is unknown but can be associated with restless leg syndrome (RLS), low iron stores, neuropathy, spinal cord diseases, kidney disease, rheumatological disorders, narcolepsy, obstructive sleep apnea, and REM sleep behavior disorder. Caffeine can also aggravate PLMS and should be avoided. Sleep hygiene methods can also improve sleep as well as lifestyle changes such as regular exercise. Patient was advised that no treatment is needed at this time. If symptoms increase, then further evaluation is indicated. 3. Hypoxemia, moderate, with real oxygen saturation of 73% and 12.4 minutes spent less than 90%. His baseline oxygen saturation was normal with an average of 93%. * Positional therapy * Attempt to lose weight. * Avoid alcohol consumption near bedtime. * Avoid supine sleep * The patient is again cautioned about driving until sleepiness completely resolves. * Return in 3 months, I will assess response to therapy and compliance at that time. Counseling Topics: Sleeping position, Weight loss health impact Visit Type: In Office Time Spent with Patient (minutes): 21 Provider Statement: I spent 100% of the Face to Face Visit with the patient with greater than 50% spent counseling the patient and coordination of care.
[2021-06-08 09:25] VITALS: BP 128/73
== END 2021-06-08 08:51 | disposition home or self-care (01) ==
LOC: SC 08:50
PROVIDERS: ATTEND Nurse Practitioner Family
DX: G47.33 Obstructive sleep apnea (adult) (pediatric) (principal); G47.61 Periodic limb movement disorder; R09.02 Hypoxemia; E66.9 Obesity, unspecified; Z68.36 Body mass index [BMI] 36.0-36.9, adult
CPT/HCPCS: 99213; G0463; 99212

== ENCOUNTER 2021-07-23 07:49 | Outpatient (CLI) | payer MEDICARE, OTHER ==
[2021-07-23 12:04] LABS: ESTIMATED AVERAGE GLUCOSE 134 mg/dL (70-100); HEMOGLOBIN A1c% 6.3 % (4.27-6.07)
[2021-07-23 12:12] LABS: BASOPHILS % (AUTO) 0.3 %; EOSINOPHILS # (AUTO) 0.1 10^3/uL (0.0-0.7); EOSINOPHILS % (AUTO) 0.9 %; HCT - HEMATOCRIT 43.7 % (42.0-52.0); HGB - HEMOGLOBIN 14.4 g/dL (14.0-18.0); LYMPHOCYTES # (AUTO) 1.3 10^3/uL (1.5-3.5); LYMPHOCYTES % (AUTO) 16.9 %; MEAN CORPUSCULAR HEMOGLOBIN 30.6 pg (27.0-31.0); MEAN CORPUSCULAR VOLUME 92.8 fL (80.0-94.0); MEAN PLATELET VOLUME 10.9 fL (7.4-11.4); MONOCYTES # (AUTO) 0.8 10^3/uL (0.0-1.0); MONOCYTES % (AUTO) 10.6 %; NEUTROPHILS # (AUTO) 5.5 10^3/uL (1.5-6.6); PLT - PLATELET COUNT 246 10^3/uL (130-450); RED BLOOD COUNT 4.71 10^6/uL (4.70-6.10); WHITE BLOOD COUNT 7.9 x10^3/uL (4.8-10.8)
[2021-07-23 12:36] LABS: ALBUMIN 3.4 g/dL (3.2-5.5); ALBUMIN/GLOBULIN RATIO 0.9 (1.0-2.2); ALKALINE PHOSPHATASE 72 IU/L (42-121); ALT ALANINE AMINOTRANSFERASE 61 IU/L (10-60); AST ASPARTATE AMINOTRANSFERASE 27 IU/L (10-42); BILIRUBIN,TOTAL 0.6 mg/dL (0.2-1.0); BUN - BLOOD UREA NITROGEN 31 mg/dL (6-20); CALCIUM 10.3 mg/dL (8.5-10.3); CARBON DIOXIDE - CO2 26 mmol/L (21-32); CHLORIDE 104 mmol/L (101-111); CHOL/HDL RATIO 5.5 (<5.0); CHOLESTEROL 209 mg/dL; CREATININE 1.2 mg/dL (0.6-1.2); GFR - MDRD 59 (>89); GLUCOSE 116 mg/dL (70-100); HDL CHOLESTEROL 38 mg/dL; LDL CHOLESTEROL,CALCULATED 137 mg/dL; LDL/HDL RATIO 3.6 (<3.6); POTASSIUM 4.2 mmol/L (3.5-5.0); SODIUM 142 mmol/L (135-145); TOTAL PROTEIN 7.4 g/dL (6.7-8.2); TRIGLYCERIDES 170 mg/dL; VLDL CHOLESTEROL 34 mg/dL
== END 2021-07-23 07:50 | disposition home or self-care (01) ==
LOC: LAB.N 07:49
PROVIDERS: ATTEND Family Medicine
DX: I10 Essential (primary) hypertension (principal); R73.01 Impaired fasting glucose; Z12.5 Encounter for screening for malignant neoplasm of prostate
CPT/HCPCS: 36415; 80053; 80061; 83036; 85025; G0103; 83721; 84153

== ENCOUNTER 2021-08-06 10:08 | Outpatient (CLI) | payer MEDICARE, OTHER ==
[2021-08-06 12:24] LABS: BILIRUBIN,URINE NEGATIVE (NEGATIVE); GLUCOSE, URINE (UA) NEGATIVE (NEGATIVE); KETONES,URINE (UA) NEGATIVE (NEGATIVE); LEUKOCYTE ESTERASE, URINE NEGATIVE (NEGATIVE); NITRITE,URINE NEGATIVE (NEGATIVE); OCCULT BLOOD,URINE TRACE-INTA (NEGATIVE); PH,URINE 6.5 PH (5.0-7.5); PROTEIN,URINE NEGATIVE (NEGATIVE); UROBILINOGEN,URINE 0.2 (NORMAL) E.U./dL (NORMAL)
[2021-08-06 12:33] LABS: CLARITY,URINE CLEAR (CLEAR)
== END 2021-08-06 23:59 | disposition home or self-care (01) ==
LOC: LAB.N 10:08
DX: N20.1 Calculus of ureter (principal)
CPT/HCPCS: 81001; 81003; 87086

== ENCOUNTER 2021-09-07 08:18 | Outpatient (CLI) | payer MEDICARE, OTHER ==
[2021-09-07 09:09] VITALS: BP 140/89
--- NOTE | 2021-09-07 09:09 | SLEEP CARE CONSULTATION ---
Information from patient questionnaire entered by Estela Bey MA. I have reviewed and concur with the information entered by Estela Bey MA. This document represents the service I personally performed and the decisions made by , Deneen Butcher ARNP. History of Present Illness Service Date and Time: 09/07/2021 0818 Previous diagnosis: Mild, Obstructive Sleep Apnea-Hypopnea Syndrome AHI: 12.8 (in 2021) Reason for follow up: other (3 MONTH POSITIONAL THERAPY F/U, ) Prior sleep studies: Yes (x2 ) Year and Where: [facility] Type of Sleep Study: Home sleep study (F/U POLY) HPI additional information: GONZALO LOVE was diagnosed to have mild, AHI 12.8, obstructive sleep apnea- hypopnea syndrome and returned today for his Positional therapy three month follow-up. Sleep Study - Results Type of Sleep Study: Home sleep study (F/U POLY) Prior sleep studies: Yes (x2 ) Year and Where: [facility] CPAP Compliance Data Compliance data discussion: He has been using a wedge pillow, but is slipping down. He is going to try a different wedge pillow system that has a less slippery surface. He spent time in [facility] and "lost" 6 weeks because of a UTI/Sepsis and kidney stone. He has spent time in his [facility] for sleep when he was going through all this. He has not felt much difference in his sleep and restfulness. Subjective Current [place] Sleepiness Scale score: 5 (08/2021) Allergies and Home Medications Known drug allergies: No Drug allergies reviewed: Yes Home medication list reviewed: Yes (no changes) Allergy and home medication list: Allergies atenolol Allergy (Verified 02/10/14 15:11) Unknown Review of Systems Review of systems same as previous: Yes (KIDNEY STONE 08/06) Physical Exam Vital signs obtained and entered by: ATUL ARGUETA Blood Pressure: 140/89 (LEFT, PULSE 61, RESP 16, ) Cuff size: wrist Heart Rate: 81 O2 Saturation: 97 (N95 MASK) Height: 6 ft 4 in Weight: 294 lb Weight change since last visit: TRYING TO LOOSE WEIGHT, DIET AND EXCERCISE. 6 lb loss Body Mass Index: 35.8 BMI Classification: Obese Impression and Plan 1. Obstructive Sleep Apnea-Hypopnea Syndrome, mild. Patient has had because he has been in the hospital in the last couple of months. He has not yet been able to find a good position system but has been able to sleep in his recliner to keep his head elevated to reduce at home. He is to continue with positional therapy and has a new wedge pillow system that he ordered yesterday that he is going to try. He does not feel like normal appliance would work for him because of the side effects possible jaw damage. He is also not wanting to use a CPAP. We will continue with the positional therapy and have him follow up in about 6 months. Patient's apnea severity and rationale for treatment to reduce apnea, improve sleep quality and reduce cardiovascular and cerebrovascular events was reviewed. 2. Obesity, unspecified. Patient has lost weight. Currently patients BMI is 35.8. Obesity increases the risk of apnea, CPAP pressure requirements and overall health risks especially cardiovascular and diabetes. Thus patient is advised to continue to try to lose weight. Weight loss can be done with reducing portion size, reducing refined foods and balancing content with vegetables, fruit and whole grain foods. In addition, patient encouraged to get regular exercise. -Continue positional therapy -Continue to try to lose weight -Call this office if any problems -Return for follow up in 6 months, or sooner if concerns arise Counseling Topics: Sleeping position, Weight loss health impact Visit Type: In Office Time Spent with Patient (minutes): 21 Provider Statement: I spent 100% of the Face to Face Visit with the patient with greater than 50% spent counseling the patient and coordination of care.
== END 2021-09-07 08:19 | disposition home or self-care (01) ==
LOC: SC 08:18
PROVIDERS: ATTEND Nurse Practitioner Family
DX: G47.33 Obstructive sleep apnea (adult) (pediatric) (principal); E66.9 Obesity, unspecified; Z68.35 Body mass index [BMI] 35.0-35.9, adult
CPT/HCPCS: 99213; G0463; 99212

== ENCOUNTER 2021-12-24 14:42 | Outpatient (CLI) | payer MEDICARE, OTHER ==
--- NOTE | 2021-12-24 16:54 | Ultrasound Report ---
PROCEDURE: Carotid Doppler Complete INDICATIONS: TIA, MEMORY LOSS TECHNIQUE: Color and pulse Doppler interrogation was performed of both carotid systems, with image documentation and velocity measurements. COMPARISON: None. FINDINGS: Right side: Brachial blood pressure: 126/58 mm Hg. Common carotid artery peak systolic velocity: 62.8 cm/sec. Internal carotid artery peak systolic velocity: 77.7 cm/sec. Internal carotid artery end diastolic velocity: 15.2 cm/sec. External carotid artery peak systolic velocity: 104 cm/sec. ICA/CCA peak systolic ratio: 1.2 . Massey scale imaging description: Mild atherosclerotic plaques are noted in distal common carotid bjorn ry and proximal internal carotid artery. Percent internal carotid artery stenosis: Less than 50% . Vertebral artery: Flow direction is antegrade. Left side: Brachial blood pressure: 121/62 mm Hg. Common carotid artery peak systolic velocity: 74.3 cm/sec. Internal carotid artery peak systolic velocity: 98.2 cm/sec. Internal carotid artery end diastolic velocity: 23.4 cm/sec. External carotid artery peak systolic velocity: 118.3 cm/sec. ICA/CCA peak systolic ratio: 1.2 . Massey scale imaging description: Mild atherosclerotic plaques are noted in distal common carotid bjorn ry and proximal internal carotid artery. Percent internal carotid artery stenosis: Less than 50% . Vertebral artery: Flow direction is antegrade. IMPRESSION: Less than 50% stenosis in bilateral proximal internal carotid arteries. The estimate of stenosis included in the report of the imaging study was calculated using the NASCET method Reviewed by: Beto Smalls MD on 12/24/2021 4:53 PM PDT Approved by: Beto Smalls MD on 12/24/2021 4:53 PM PDT Station ID: [id number]
== END 2021-12-24 14:43 | disposition home or self-care (01) ==
LOC: DI 14:42
PROVIDERS: ATTEND Physician Assistant
DX: G45.9 Transient cerebral ischemic attack, unspecified (principal)
CPT/HCPCS: 93880

== ENCOUNTER 2021-12-28 11:16 | Outpatient (CLI) | payer MEDICARE, OTHER | END 2021-12-28 11:17 | disposition home or self-care (01) | LOC: LAB.N 11:16 | PROVIDERS: ATTEND Radiology Radiation Oncology | DX: C61 Malignant neoplasm of prostate (principal) | CPT/HCPCS: 36415; 84153 ==

== ENCOUNTER 2022-01-24 07:08 | Outpatient (CLI) | payer MEDICARE, OTHER ==
--- NOTE | 2022-01-24 09:40 | MRI Report ---
PROCEDURE: Brain W/O INDICATIONS: TIA, MEMORY LOSS TECHNIQUE: Noncontrast axial T1 spin echo, axial T2 fast spin echo, sagittal and axial FLAIR, coronal T2 fast sp in echo, axial gradient echo, axial diffusion and ADC through the brain. COMPARISON: None. FINDINGS: Image quality: Excellent. CSF Spaces: Basal cisterns are patent. No extra-axial fluid collections. Ventricles are normal in size and shape. Brain: Moderate chronic microvascular ischemic changes. Mild global cerebral volume loss. No restrict ed diffusion to indicate recent ischemia. No unexpected intracranial susceptibility. Midline structur es are normal in configuration. No mass effect or midline shift. The major intracranial vascular flow -related signal voids are maintained. Skull and face: Calvarium has normal marrow signal. Orbits appear normal. Sinuses: Sinuses and mastoids are predominantly clear. IMPRESSION: No acute intracranial finding. Moderate chronic microvascular ischemic changes. Mild global cerebral volume loss. Reviewed by: Edu Quintanilla MD on 01/24/2022 9:38 AM PDT Approved by: Edu Quintanilla MD on 01/24/2022 9:38 AM PDT Station ID: [id number]
== END 2022-01-24 07:09 | disposition home or self-care (01) ==
LOC: DI 07:08
PROVIDERS: ATTEND Physician Assistant
DX: G45.9 Transient cerebral ischemic attack, unspecified (principal); R41.3 Other amnesia; I67.2 Cerebral atherosclerosis

== ENCOUNTER 2022-01-27 14:27 | Outpatient (CLI) | payer MEDICARE, OTHER | END 2022-01-27 14:28 | disposition home or self-care (01) | LOC: MAC.MOP 14:27 | PROVIDERS: ATTEND Physician Assistant | DX: G45.9 Transient cerebral ischemic attack, unspecified (principal) | CPT/HCPCS: 93246 ==

== ENCOUNTER 2022-02-07 12:10 | Outpatient (CLI) | payer MEDICARE, OTHER ==
[2022-02-07 17:53] LABS: CALCIUM 9.7 mg/dL (8.5-10.3); CREATININE 1.1 mg/dL (0.6-1.2); POTASSIUM 4.3 mmol/L (3.5-5.0); URIC ACID 6.1 mg/dL (2.6-7.2)
== END 2022-02-07 12:11 | disposition home or self-care (01) ==
LOC: LAB.N 12:10
PROVIDERS: ATTEND Urology
DX: N20.0 Calculus of kidney (principal)
CPT/HCPCS: 36415; 80048; 84550

== ENCOUNTER 2022-02-17 07:49 | Outpatient (CLI) | payer MEDICARE, OTHER ==
[2022-02-17 08:18] LABS: BILIRUBIN,URINE NEGATIVE (NEGATIVE); GLUCOSE, URINE (UA) NEGATIVE (NEGATIVE); KETONES,URINE (UA) NEGATIVE (NEGATIVE); LEUKOCYTE ESTERASE, URINE NEGATIVE (NEGATIVE); NITRITE,URINE NEGATIVE (NEGATIVE); OCCULT BLOOD,URINE NEGATIVE (NEGATIVE); PROTEIN,URINE NEGATIVE (NEGATIVE); UROBILINOGEN,URINE 0.2 (NORMAL) E.U./dL (NORMAL)
[2022-02-17 08:25] LABS: BACTERIA,URINE None Seen /HPF (None Seen); CLARITY,URINE CLEAR (CLEAR); RBC,URINE 0-5 /HPF (0-5); SQUAMOUS EPITHELIAL CELL,UR NONE SEEN (<= Few); WBC,URINE 0-3 /HPF (0-3)
[2022-02-17 08:25] LABS: BASOPHILS % (AUTO) 0.2 %; EOSINOPHILS # (AUTO) 0.1 10^3/uL (0.0-0.7); EOSINOPHILS % (AUTO) 1.5 %; HCT - HEMATOCRIT 47.5 % (42.0-52.0); HGB - HEMOGLOBIN 15.3 g/dL (14.0-18.0); LYMPHOCYTES # (AUTO) 1.4 10^3/uL (1.5-3.5); LYMPHOCYTES % (AUTO) 30.1 %; MEAN CORPUSCULAR HEMOGLOBIN 29.5 pg (27.0-31.0); MEAN CORPUSCULAR HGB CONC 32.2 g/dL (32.0-36.0); MEAN CORPUSCULAR VOLUME 91.7 fL (80.0-94.0); MEAN PLATELET VOLUME 11.5 fL (7.4-11.4); MONOCYTES # (AUTO) 0.5 10^3/uL (0.0-1.0); MONOCYTES % (AUTO) 11.3 %; NEUTROPHILS # (AUTO) 2.6 10^3/uL (1.5-6.6); NEUTROPHILS % (AUTO) 56.7 %; PLT - PLATELET COUNT 145 10^3/uL (130-450); RED BLOOD COUNT 5.18 10^6/uL (4.70-6.10); RED CELL DISTRIBUTION WIDTH 12.9 % (12.0-15.0); WHITE BLOOD COUNT 4.6 x10^3/uL (4.8-10.8)
[2022-02-17 08:36] LABS: CALCIUM 9.9 mg/dL (8.5-10.3); CREATININE 1.1 mg/dL (0.6-1.2); POTASSIUM 4.1 mmol/L (3.5-5.0)
[2022-02-17 08:47] LABS: ESTIMATED AVERAGE GLUCOSE 128 mg/dL (70-100); HEMOGLOBIN A1c% 6.1 % (4.27-6.07)
== END 2022-02-17 07:50 | disposition home or self-care (01) ==
LOC: LAB 07:49
PROVIDERS: ATTEND Orthopaedic Surgery
DX: Z01.818 Encounter for other preprocedural examination (principal); R73.9 Hyperglycemia, unspecified; N39.0 Urinary tract infection, site not specified
CPT/HCPCS: 36415; 80048; 81001; 83036; 85025; 87086; 93005

== ENCOUNTER 2022-02-22 10:30 | Outpatient (CLI) | payer MEDICARE, OTHER | END 2022-02-22 10:31 | disposition home or self-care (01) | LOC: MAC.MOP 10:30 | PROVIDERS: ATTEND Physician Assistant | DX: I47.1 Supraventricular tachycardia (principal); I49.1 Atrial premature depolarization; I49.3 Ventricular premature depolarization | CPT/HCPCS: 93248 ==

== ENCOUNTER 2022-04-19 07:31 | Outpatient (CLI) | payer MEDICARE, OTHER ==
[2022-04-19 12:45] LABS: BASOPHILS % (AUTO) 0.4 %; EOSINOPHILS # (AUTO) 0.1 10^3/uL (0.0-0.7); EOSINOPHILS % (AUTO) 2.2 %; HGB - HEMOGLOBIN 14.5 g/dL (14.0-18.0); LYMPHOCYTES # (AUTO) 1.2 10^3/uL (1.5-3.5); LYMPHOCYTES % (AUTO) 23.3 %; MEAN CORPUSCULAR HEMOGLOBIN 29.5 pg (27.0-31.0); MEAN CORPUSCULAR HGB CONC 31.5 g/dL (32.0-36.0); MEAN CORPUSCULAR VOLUME 93.5 fL (80.0-94.0); MEAN PLATELET VOLUME 11.9 fL (7.4-11.4); MONOCYTES # (AUTO) 0.6 10^3/uL (0.0-1.0); MONOCYTES % (AUTO) 11.1 %; NEUTROPHILS # (AUTO) 3.2 10^3/uL (1.5-6.6); NEUTROPHILS % (AUTO) 62.8 %; PLT - PLATELET COUNT 181 10^3/uL (130-450); RED BLOOD COUNT 4.92 10^6/uL (4.70-6.10); RED CELL DISTRIBUTION WIDTH 13.2 % (12.0-15.0); WHITE BLOOD COUNT 5.1 x10^3/uL (4.8-10.8)
[2022-04-19 13:03] LABS: ALBUMIN/GLOBULIN RATIO 1.3 (1.0-2.2); ALKALINE PHOSPHATASE 86 IU/L (42-121); ALT ALANINE AMINOTRANSFERASE 24 IU/L (10-60); AST ASPARTATE AMINOTRANSFERASE 19 IU/L (10-42); BILIRUBIN,TOTAL 0.7 mg/dL (0.2-1.0); BUN - BLOOD UREA NITROGEN 29 mg/dL (6-20); CALCIUM 9.5 mg/dL (8.5-10.3); CARBON DIOXIDE - CO2 27 mmol/L (21-32); CHLORIDE 98 mmol/L (101-111); CHOL/HDL RATIO 4.1 (<5.0); CHOLESTEROL 231 mg/dL; GFR - MDRD 73 (>89); GLUCOSE 118 mg/dL (70-100); HDL CHOLESTEROL 56 mg/dL; LDL CHOLESTEROL,CALCULATED 153 mg/dL; LDL/HDL RATIO 2.7 (<3.6); MAGNESIUM 1.8 mg/dL (1.7-2.8); POTASSIUM 3.9 mmol/L (3.5-5.0); SODIUM 135 mmol/L (135-145); TOTAL PROTEIN 7.2 g/dL (6.7-8.2); TRIGLYCERIDES 109 mg/dL; URIC ACID 6.2 mg/dL (2.6-7.2); VLDL CHOLESTEROL 22 mg/dL
[2022-04-19 13:15] LABS: THYROID STIMULATING HORMONE 2.34 uIU/mL (0.34-5.60)
== END 2022-04-19 07:32 | disposition home or self-care (01) ==
LOC: LAB.N 07:31
PROVIDERS: ATTEND Urology
DX: N20.0 Calculus of kidney (principal); E78.5 Hyperlipidemia, unspecified; I48.92 Unspecified atrial flutter
CPT/HCPCS: 36415; 80053; 80061; 83721; 83735; 84443; 84550; 85025

== ENCOUNTER 2022-07-26 07:57 | Outpatient (CLI) | payer MEDICARE, OTHER ==
[2022-07-26 08:16] LABS: BASOPHILS % (AUTO) 0.2 %; EOSINOPHILS # (AUTO) 0.1 10^3/uL (0.0-0.7); EOSINOPHILS % (AUTO) 1.4 %; HCT - HEMATOCRIT 47.7 % (42.0-52.0); HGB - HEMOGLOBIN 15.5 g/dL (14.0-18.0); LYMPHOCYTES # (AUTO) 1.4 10^3/uL (1.5-3.5); LYMPHOCYTES % (AUTO) 27.6 %; MEAN CORPUSCULAR HEMOGLOBIN 29.8 pg (27.0-31.0); MEAN CORPUSCULAR HGB CONC 32.5 g/dL (32.0-36.0); MEAN CORPUSCULAR VOLUME 91.6 fL (80.0-94.0); MEAN PLATELET VOLUME 11.2 fL (7.4-11.4); MONOCYTES # (AUTO) 0.6 10^3/uL (0.0-1.0); MONOCYTES % (AUTO) 11.1 %; NEUTROPHILS % (AUTO) 59.3 %; PLT - PLATELET COUNT 138 10^3/uL (130-450); RED BLOOD COUNT 5.21 10^6/uL (4.70-6.10); RED CELL DISTRIBUTION WIDTH 12.9 % (12.0-15.0)
[2022-07-26 09:02] LABS: ALBUMIN/GLOBULIN RATIO 1.3 (1.0-2.2); ALKALINE PHOSPHATASE 77 IU/L (42-121); ALT ALANINE AMINOTRANSFERASE 22 IU/L (10-60); AST ASPARTATE AMINOTRANSFERASE 19 IU/L (10-42); BILIRUBIN,TOTAL 0.4 mg/dL (0.2-1.0); BUN - BLOOD UREA NITROGEN 27 mg/dL (6-20); CALCIUM 9.5 mg/dL (8.5-10.3); CARBON DIOXIDE - CO2 31 mmol/L (21-32); CHLORIDE 102 mmol/L (101-111); CHOL/HDL RATIO 2.5 (<5.0); CHOLESTEROL 147 mg/dL; CREATININE 1.1 mg/dL (0.6-1.2); GFR - MDRD 65 (>89); GLUCOSE 111 mg/dL (70-100); HDL CHOLESTEROL 60 mg/dL; LDL CHOLESTEROL,CALCULATED 70 mg/dL; LDL/HDL RATIO 1.2 (<3.6); SODIUM 141 mmol/L (135-145); TOTAL PROTEIN 7.2 g/dL (6.7-8.2); TRIGLYCERIDES 83 mg/dL; VLDL CHOLESTEROL 17 mg/dL
[2022-07-26 09:14] LABS: CREATININE,URINE 170.5 mg/dL; MICROALBUM/CREATININE RATIO,UR 8.8 ug/mg (<30.0); MICROALBUMIN,URINE 1.5 mg/dL (0-300.0)
[2022-07-26 11:44] LABS: ESTIMATED AVERAGE GLUCOSE 126 mg/dL (70-100)
== END 2022-07-26 14:46 | disposition home or self-care (01) ==
LOC: LAB 07:57
PROVIDERS: ATTEND Internal Medicine
DX: E78.5 Hyperlipidemia, unspecified (principal); R73.03 Prediabetes; I10 Essential (primary) hypertension
CPT/HCPCS: 36415; 80053; 80061; 82043; 82570; 83036; 83721; 85025

== ENCOUNTER 2022-08-29 08:47 | Outpatient (CLI) | payer MEDICARE, OTHER | END 2022-08-29 08:48 | disposition home or self-care (01) | LOC: LAB 08:47 | PROVIDERS: ATTEND Radiology Radiation Oncology | DX: C61 Malignant neoplasm of prostate (principal) | CPT/HCPCS: 36415; 84153 ==

== ENCOUNTER 2023-02-20 14:46 | Outpatient (CLI) | payer MEDICARE, OTHER | END 2023-02-20 14:47 | disposition home or self-care (01) | LOC: LAB.N 14:46 | PROVIDERS: ATTEND Radiology Radiation Oncology | DX: C61 Malignant neoplasm of prostate (principal) | CPT/HCPCS: 36415; 84153 ==

== ENCOUNTER 2023-03-07 14:05 | Outpatient (CLI) | payer MEDICARE, OTHER ==
[2023-03-07 14:49] LABS: CALCIUM 9.7 mg/dL (8.5-10.3); CREATININE 1.1 mg/dL (0.6-1.3); POTASSIUM 3.9 mmol/L (3.5-4.5)
--- NOTE | 2023-03-07 16:37 | XRAY Report ---
PROCEDURE: Abdomen 1 View X-Ray INDICATIONS: KIDNEY STONE TECHNIQUE: One view of the abdomen acquired. COMPARISON: None. FINDINGS: Surgical changes and devices: None. Bowel: Bowel gas pattern is normal. Soft tissues: No suspicious abdominal calcifications. Visualized solid organ contours appear normal in size. Bones: No suspicious bony lesions. IMPRESSION: No radiopaque renal stone. Reviewed by: Yo Martinez on 03/07/2023 4:36 PM [facility] Approved by: Yo Martinez on 03/07/2023 4:36 PM [facility] Station ID: [id number]
== END 2023-03-07 14:06 | disposition home or self-care (01) ==
LOC: LAB 14:05
PROVIDERS: ATTEND Urology
DX: N20.0 Calculus of kidney (principal); Z85.46 Personal history of malignant neoplasm of prostate
CPT/HCPCS: 36415; 80048; 84153

== ENCOUNTER 2023-03-15 06:52 | Outpatient (CLI) | payer MEDICARE, OTHER ==
--- NOTE | 2023-03-15 11:16 | Ultrasound Report ---
PROCEDURE: Retroperitoneal INDICATIONS: KIDNEY STONE TECHNIQUE: Real-time scanning was performed of the retroperitoneal organs, with image documentation. COMPARISON: None. FINDINGS: Kidneys: Kidneys are normal in size. Right kidney measures 13.4 cm long; left kidney measures 12 .8 cm long. Right renal cortical thickness is 1.4 cm; left renal cortical thickness is 1.2 cm. No s olid masses, hydronephrosis, or nephrolithiasis. Bladder: Pre-void bladder volume is 24.5 mL. Post-void residual is 0 mL. Pre-void images demonstra te no intraluminal masses or stones. On pre-void images, both ureteral jets are noted with color Dop pler interrogation. (Of note, ureteral jets may not be detectable in up to 25% of cases due to insuf ficient differences in specific gravity between ureteral and bladder urine). Miscellaneous: No free abdominal fluid. IMPRESSION: Normal renal ultrasound. Reviewed by: Sterling Krueger MD on 03/15/2023 11:14 AM [facility] Approved by: Sterling Krueger MD on 03/15/2023 11:14 AM PST Station ID: [id number]
== END 2023-03-15 06:53 | disposition home or self-care (01) ==
LOC: DI 06:52
PROVIDERS: ATTEND Urology
DX: N20.0 Calculus of kidney (principal)

== ENCOUNTER 2023-06-23 07:36 | Outpatient (CLI) | payer MEDICARE, OTHER ==
[2023-06-23 08:28] LABS: ALBUMIN 4.1 g/dL (3.2-5.5); ALBUMIN/GLOBULIN RATIO 1.6 (1.0-2.2); ALKALINE PHOSPHATASE 61 IU/L (42-121); ALT ALANINE AMINOTRANSFERASE 20 IU/L (10-60); AST ASPARTATE AMINOTRANSFERASE 19 IU/L (10-42); BILIRUBIN,TOTAL 0.4 mg/dL (0.2-1.0); BUN - BLOOD UREA NITROGEN 20 mg/dL (6-20); CALCIUM 10.1 mg/dL (8.5-10.3); CARBON DIOXIDE - CO2 33 mmol/L (21-32); CHLORIDE 102 mmol/L (101-111); CHOL/HDL RATIO 2.8 (<5.0); CHOLESTEROL 133 mg/dL; CREATININE 1.1 mg/dL (0.6-1.3); GFR - MDRD 65 (>89); GLUCOSE 112 mg/dL (74-104); HDL CHOLESTEROL 48 mg/dL; LDL CHOLESTEROL,CALCULATED 57 mg/dL; LDL/HDL RATIO 1.2 (<3.6); SODIUM 139 mmol/L (135-145); TOTAL PROTEIN 6.7 g/dL (6.4-8.9); TRIGLYCERIDES 138 mg/dL (48-352); VLDL CHOLESTEROL 28 mg/dL
[2023-06-23 08:29] LABS: CREATININE,URINE 130.4 mg/dL; MICROALBUM/CREATININE RATIO,UR 20.7 ug/mg (<30.0); MICROALBUMIN,URINE 2.7 mg/dL
[2023-06-23 08:39] LABS: THYROID STIMULATING HORMONE 2.76 uIU/mL (0.34-5.60)
[2023-06-23 09:04] LABS: ESTIMATED AVERAGE GLUCOSE 128 mg/dL (70-100); HEMOGLOBIN A1c% 6.1 % (4.27-6.07)
[2023-06-23 10:03] LABS: BASOPHILS % (AUTO) 0.2 %; EOSINOPHILS # (AUTO) 0.1 10^3/uL (0.0-0.7); EOSINOPHILS % (AUTO) 1.3 %; HCT - HEMATOCRIT 44.9 % (42.0-52.0); HGB - HEMOGLOBIN 14.5 g/dL (14.0-18.0); LYMPHOCYTES # (AUTO) 1.2 10^3/uL (1.5-3.5); LYMPHOCYTES % (AUTO) 26.7 %; MEAN CORPUSCULAR HEMOGLOBIN 30.8 pg (27.0-31.0); MEAN CORPUSCULAR HGB CONC 32.3 g/dL (32.0-36.0); MEAN CORPUSCULAR VOLUME 95.3 fL (80.0-94.0); MEAN PLATELET VOLUME 12.1 fL (7.4-11.4); MONOCYTES # (AUTO) 0.6 10^3/uL (0.0-1.0); MONOCYTES % (AUTO) 13.3 %; NEUTROPHILS # (AUTO) 2.6 10^3/uL (1.5-6.6); NEUTROPHILS % (AUTO) 58.3 %; PLT - PLATELET COUNT 132 10^3/uL (130-450); RED BLOOD COUNT 4.71 10^6/uL (4.70-6.10); RED CELL DISTRIBUTION WIDTH 12.1 % (12.0-15.0); WHITE BLOOD COUNT 4.5 x10^3/uL (4.8-10.8)
== END 2023-06-23 07:37 | disposition home or self-care (01) ==
LOC: LAB 07:36
PROVIDERS: ATTEND Internal Medicine
DX: E78.5 Hyperlipidemia, unspecified (principal); R73.03 Prediabetes; I10 Essential (primary) hypertension; F32.A Depression, unspecified; R97.21 Rising PSA following treatment for malignant neoplasm of prostate
CPT/HCPCS: 36415; 80053; 80061; 82043; 82570; 83036; 83721; 84153; 84443; 85025

== ENCOUNTER 2023-08-22 07:38 | Outpatient (CLI) | payer MEDICARE, OTHER | END 2023-08-22 07:39 | disposition home or self-care (01) | LOC: LAB 07:38 | PROVIDERS: ATTEND Radiology Radiation Oncology | DX: C61 Malignant neoplasm of prostate (principal) | CPT/HCPCS: 36415; 84153 ==

== ENCOUNTER 2023-08-25 07:31 | Outpatient (CLI) | payer MEDICARE, OTHER ==
[2023-08-25 07:48] LABS: BASOPHILS % (AUTO) 0.2 %; EOSINOPHILS # (AUTO) 0.1 10^3/uL (0.0-0.7); EOSINOPHILS % (AUTO) 1.3 %; HCT - HEMATOCRIT 46.8 % (42.0-52.0); HGB - HEMOGLOBIN 15.3 g/dL (14.0-18.0); LYMPHOCYTES # (AUTO) 1.5 10^3/uL (1.5-3.5); LYMPHOCYTES % (AUTO) 27.8 %; MEAN CORPUSCULAR HEMOGLOBIN 30.7 pg (27.0-31.0); MEAN CORPUSCULAR HGB CONC 32.7 g/dL (32.0-36.0); MEAN CORPUSCULAR VOLUME 93.8 fL (80.0-94.0); MEAN PLATELET VOLUME 10.8 fL (7.4-11.4); MONOCYTES # (AUTO) 0.6 10^3/uL (0.0-1.0); MONOCYTES % (AUTO) 11.8 %; NEUTROPHILS # (AUTO) 3.1 10^3/uL (1.5-6.6); NEUTROPHILS % (AUTO) 58.7 %; PLT - PLATELET COUNT 140 10^3/uL (130-450); RED BLOOD COUNT 4.99 10^6/uL (4.70-6.10); RED CELL DISTRIBUTION WIDTH 12.7 % (12.0-15.0); WHITE BLOOD COUNT 5.3 x10^3/uL (4.8-10.8)
[2023-08-25 08:08] LABS: BUN - BLOOD UREA NITROGEN 23 mg/dL (6-20); CARBON DIOXIDE - CO2 30 mmol/L (21-32); CHLORIDE 103 mmol/L (101-111); CHOL/HDL RATIO 2.7 (<5.0); CHOLESTEROL 147 mg/dL; CREATININE 1.2 mg/dL (0.6-1.3); GFR - MDRD 59 (>89); GLUCOSE 113 mg/dL (74-104); HDL CHOLESTEROL 55 mg/dL; LDL CHOLESTEROL,CALCULATED 69 mg/dL; LDL/HDL RATIO 1.3 (<3.6); POTASSIUM 4.1 mmol/L (3.5-4.5); SODIUM 138 mmol/L (135-145); TRIGLYCERIDES 113 mg/dL (48-352); VLDL CHOLESTEROL 23 mg/dL
== END 2023-08-25 07:32 | disposition home or self-care (01) ==
LOC: LAB 07:31
PROVIDERS: ATTEND Internal Medicine Cardiovascular Disease
DX: E78.5 Hyperlipidemia, unspecified (principal); I10 Essential (primary) hypertension
CPT/HCPCS: 36415; 80048; 80061; 83721; 85025

== ENCOUNTER 2023-10-27 11:07 | Outpatient (CLI) | payer MEDICARE, OTHER ==
--- NOTE | 2023-10-27 14:53 | XRAY Report ---
PROCEDURE: Chest 2V INDICATIONS: PERSISTENT COUGH TECHNIQUE: 2 views of the chest were acquired. COMPARISON: 07/12/2021 FINDINGS: Surgical changes and devices: None. Lungs and pleura: Mild opacity at the left lung base, confirmed on the second lateral view. No drain able effusions. Mediastinum: Moderate hiatal hernia. Normal heart size. Tortuous aorta. Bones and chest wall: Degenerative changes IMPRESSION: Suspect opacity at the left lung base confirmed on the second lateral view, likely infectious/inflamm atory. Consider future imaging surveillance to assess for resolution. At least moderate hiatal hernia. Reviewed by: Yuriy Zuniga MD on 10/27/2023 2:52 PM PDT Approved by: Yuriy Zuniga MD on 10/27/2023 2:52 PM PDT Station ID: [id number]
== END 2023-10-27 11:08 | disposition home or self-care (01) ==
LOC: DI.N 11:07
PROVIDERS: ATTEND Internal Medicine
DX: R91.8 Other nonspecific abnormal finding of lung field (principal); U07.1 COVID-19; K44.9 Diaphragmatic hernia without obstruction or gangrene